=== PATIENT | male | born 1980 | race Caucasian/White ===

== ENCOUNTER 2019-01-22 14:19 | Inpatient (IN) | payer OTHER ==
[~2019-01-22] VITALS: Ht 188 cm; Wt 108.3 kg
--- NOTE | ~2019-01-22 | PROC ---
[address] [address] PROCEDURE REPORT Name: ALANNA HOPPER Room: [address] IN .R.#: [id number] Admission: 01/22/19 Attend Phys: Delilah Cook Discharge: 01/24/19 Date of : 78 Report #: [id number] THIS REPORT FOR: //name// For GI report, please see the Provation report in Perceptive 7 content. By: 06Medical Records Staff MARV /OKSANA
[~2019-01-22 14:19] MED LIST: AUGMENTIN 875-1 EACH PO; NOHOMEMEDICATIONS; NORCO 5-325 TA1 EACH PO; SYNTHROID25 MC1 PO
[2019-01-22 14:20] VITALS: BP 157/88
[2019-01-22] MEDS ORDERED: NORVASC2.5 MG PO (14:25)
[2019-01-22] MEDS ORDERED: PROZAC10 MG PO (14:25)
[2019-01-22] MEDS ORDERED: HYDROCHLOROTH12.5 M1 PO (14:25)
[2019-01-22 15:06] LABS: ABSOLUTE BASOPHILS 0.1 thou/uL (0.0-0.2); ABSOLUTE LYMPHOCYTES 1.7 thou/uL (0.8-5.3); ABSOLUTE MONOCYTES 0.7 thou/uL (0.0-1.2); ABSOLUTE NEUTROPHILS 8.6 thou/uL (1.6-8.1); BASOPHILS 0.9 %; EOSINOPHILS 0.4 %; HEMATOCRIT 42.6 % (42.0-52.0); HEMOGLOBIN 15.4 gm/dL (14.0-18.0); LYMPHOCYTES 15.5 %; MCHC 36.1 g/dL (28.0-37.0); MONOCYTES 6.1 %; MPV 7.9 fl. (7.2-11.1); NUCLEATED RBCS 0 /100WBC; PLATELET COUNT* 409 thou/uL (150-400); POLYS 77.1 %; RBC 5.13 mil/uL (4.50-6.00); RDW-CV 13.9 % (10.5-14.5); WBC 11.1 thou/uL (4.0-11.0)
[2019-01-22 15:11] LABS: CREATININE 1.4 mg/dL (0.6-1.3)
[2019-01-22 15:13] LABS: POTASSIUM 2.4 mmol/L (3.5-5.1)
[2019-01-22 15:15] LABS: ACETAMINOPHEN < 2 ug/mL (10-30); ALBUMIN 4.3 g/dL (3.4-5.0); ALCOHOL 11 mg/dL (<10); MAGNESIUM 1.2 mg/dL (1.8-2.4); SALICYLATE < 2.8 mg/dL (2.8-20.0); TOTAL BILIRUBIN 0.8 mg/dL (<0.1-1.0); TOTAL PROTEIN 7.9 g/dL (6.4-8.2)
[2019-01-22 19:00] VITALS: BP 158/101
--- NOTE | 2019-01-22 19:15 | NUR ---
PATIENT ADMITTED TO ICU ROOM 1, [facility] CURRENTLY 6, SLIGHT NAUSEA, HEADACHE AND ABDOMINAL PAIN. SEE EMAR FOR MEDS GIVEN. PATIENT PLEASENT AND COOPERATIVE. ALL QUESTIONS ANSWERED. BANANA BAG RUNNING AT THIS TIME, CURRENTLY REPLACING POTASSIUM AND MAGNESIUM. BED IN LOWEST POSITION, CALL LIGHT IN REACH, FALL PREACUTIONS IN PLACE.
[2019-01-22 20:00] VITALS: BP 143/94
[2019-01-22 21:05] VITALS: BP 144/90
[2019-01-22 22:00] VITALS: BP 138/89
[2019-01-22 23:00] VITALS: BP 141/94
[2019-01-23] VITALS (7 sets, daily range): BP systolic 125–134; BP diastolic 81–89
[2019-01-23 04:52] LABS: AMP/METHAMP Negative (Negative); BARBITURATES Negative (Negative); BENZODIAZEPINES Negative (Negative); COCAINE Negative (Negative); METHADONE Negative (Negative); OPIATES POSITIVE (Negative); PCP Negative (Negative); THC Negative (Negative)
[2019-01-23 06:02] LABS: CALCIUM 7.5 mg/dL (8.5-10.1); MAGNESIUM 2.6 mg/dL (1.8-2.4)
--- NOTE | 2019-01-23 06:54 | NUR ---
RECEIVED REPORT AND ASSUMED CARE AT 1900. VSS. MONITORING IN PLACE. PT REPORTS PAIN/ NAUSEA. PRN MEDICATION PER ORDERS. ASSESSMENT COMPLETED CHARTED. PT UP WITH ASSIST. BED LOCKED IN LOWEST POSITION, CALL LIGHT WITHIN REACH. BED ALARM ON. CIWA COMPLETED Q4/ PRN. PT HAD NOT URINATED BY 0400. BLADDER SCAN SHOWS 936ML. ENCOURAGED PT TO URINATE, 550ML OUT. POST VOID BLADDER SCAN SHOWS 290ML. PT REPORTS BURNING WHEN URINATING. HOURLY ROUNDING COMPLETED AND ALL NEEDS MET.
--- NOTE | 2019-01-23 09:28 | EKG ---
[place] [address] ELECTROCARDIOGRAM REPORT Name: ALANNA HOPPER Room: [address] ADM IN .R.#: [id number] Admission: 01/22/19 Attend Phys: Delilah Cook Discharge: Date of : 78 Report #: [id number] THIS REPORT FOR: //name// [facility] ED Test Date: 2019-01-22 Test Time: 14:33:04 Pat Name: ALANNA HOPPER Department: Room: [facility] Gender: M Travel Manager: EV : 1980 Requested By: Pam Palma Order Number: [id number] MD: Chano Velazquez Measurements Intervals [place] Rate: 100 P: 64 MN: 150 QRS: 6 QRSD: 107 T: 21 QT: 424 QTc: 547 Interpretive Statements Sinus tachycardia Probable left atrial enlargement Prolonged QT interval Baseline wander in lead(s) V3 Compared to ECG 09/28/2016 10:57:43 Prolonged QT interval now present Sinus rhythm no longer present Electronically Signed On 01-23-2019 9:28:36 CDT by Chano Velazquez [email or web address] <ELECTRONICALLY SIGNED> By: Chano Velazquez MD, FACC 01/23/19 0928 1433 1433 Chano Velazquez MD, FAC /EPI
--- NOTE | 2019-01-23 10:30 | NUR ---
SPOKE WITH PT. AT BEDSIDE. SHE SEEMED SUPPORTIVE. PT.SAID HE WORKS FULLTIME. 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 NO USE OF DME. SAID HE HAD BEEN SOBER FOR ABOUT 8 YEARS. HE SAID HAS BEEN UNDER STRESS AND OVER WHELMED LATELY. HASNT BEEN FEELING WELL. THOUGHT A LITTLE ALCOHOL MIGHT HELP HIS STOMACH FEEL BETTER. HE SAID A LITTLE TURNED INTO ALOT. HE WENT TO AA 8 YEARS AGO AND DIDN'T FEEL IT HELPED MUCH. HE QUIT ON HIS OWN. HE IS NOT INTERESTED IN AN INPT.PROGRAM. HE FEELS HE CAN DO IT ON HIS OWN. ASKED HOW SHE FELT ABOUT HIM QUITTING ON HIS OWN. SHE SAID SHE DIDN'T KNOW YET, SHE IS STILL PROCESSING . CM WILL FOLLOW. PT.TO HAVE COLONSCOPY TOMORROW FOR ABD.PAIN.
--- NOTE | 2019-01-23 16:03 | NUR ---
ASSUMED CARE OF PT AROUND 0730 THIS AM.REFER TO ASSESSMENT. PT'S CIWA SCORES AROUND 5-6 THIS SHIFT. IV ATIVAN AND MORPHINE GIVEN X1 PER PT'S REQUEST. IV TORADOL GIVEN FOR CHRONIC BACK PAIN. PT HAD C/O EPIGASTRIC PAIN THAT WAS RELIEVED BY GI COCKTAIL. GI PHYSICIAN CONSULTED WITH PLANS TO COMPLETE EGD TOMORROW AM. PT IS TO BE NPO AFTER MIDNIGHT FOR TEST. PT HAD KUB AND ABDOMINAL US THIS SHIFT. REFER TO RESULTS. BANANA BAG INFUSING WITH POTASSIUM REPLACED PER PROTOCOL THIS SHIFT. PT VOICED CONCERNS OF ALTERED MENTAL STATUS PRIOR TO DRINKING TUESDAY EVENING. PT STATES HE WENT TO [facility] TUESDAY NIGHT AND DIDN'T FEEL HE WAS RECEIVING APPROPRIATE CARE AND LEFT AMA FROM ED. PT STATES HE KNEW HIS POTASSIUM WAS CRITICALL LOW AT THAT TIME. PT REQUESTING CT HEAD BC OF PRIOR BRAIN TUMOR. DISCUSSED THAT PT SHOULD BRING CONCERNS UP WITH ROUNDING PHYSICIAN IN AM. PT HAS ORDERS TO TRANSFER TO TELE. PT TRANSFERED TO TELE UNIT ROOM 203 AT THIS TIME. REPORT GIVEN TO RECEIVING RN. ALL CONCERNS ADDRESSED. NO OTHER CONCERNS AT THIS TIME.
[2019-01-23 16:26] LABS: URINE BILIRUBIN NEGATIVE (Negative); URINE BLOOD NEGATIVE (Negative); URINE CLARITY CLEAR; URINE COLOR YELLOW; URINE GLUCOSE-RANDOM NEGATIVE (Negative); URINE KETONES NEGATIVE (Negative); URINE LEUKOCYTES-REFLEX NEGATIVE (Negative); URINE NITRITE-REFLEX NEGATIVE (Negative); URINE PROTEIN 1+ (Negative); URINE UROBILINOGEN 0.2 E.U./dl (0.2-1.0)
--- NOTE | 2019-01-23 18:21 | NUR ---
RECEIVED REPORT FROM Brandi CISSE. PT RECEIVED FROM ICU AT APPROXIMATELY 1555. PT A&O X 4 AND ABLE TO VOICE ALL NEEDS. PT DENIES ANY FURTHER NEEDS. AGREE WITH PREVIOUS NURSE ASSESSMENT. CLWR.
[2019-01-24] VITALS: BP 131/85
[2019-01-24 04:00] VITALS: BP 132/87
[2019-01-24 05:54] LABS: CALCIUM 7.7 mg/dL (8.5-10.1); CREATININE 0.9 mg/dL (0.6-1.3); POTASSIUM 3.7 mmol/L (3.5-5.1); TOTAL BILIRUBIN 0.4 mg/dL (<0.1-1.0); TOTAL PROTEIN 5.9 g/dL (6.4-8.2)
--- NOTE | 2019-01-24 07:57 | NUR ---
PT REMAINED VERY ANXIOUS THROUHGOUT SHIFT WITH MINIMAL SHIFT. WAS PLEASANT AND COOPERATIVE TOWARDS STAFF. OFFERED TO START A DIFFERENT IV SITE (PT THOUGHT HE WOULD NOT BE COMFORTABLE WITH RIGHT AC) BUT TOLERATED IT WELL THROUGHOUT THE SHIFT AND STATED HE WAS "FINE WITH THIS IV." PRIMARY CONCERNS ARE MILD NAUSEA, PAIN, AND MODERATE ANXIETY. FREQUENTLY ASKING FOR PAIN AND ANXIETY MEDS BEFORE THE Q2 PRN TIME MINIMUM. PT STATED "I USUALLY DONT SLEEP WELL WITH MY NARCOLEPSY ANYWAYS." PT NPO FOR EGD THIS AM. CALL LIGHT IN REACH. HOURLY ROUNDING FOR SAFETY.
[2019-01-24 08:00] VITALS: BP 144/105
--- NOTE | 2019-01-24 08:00 | NUR ---
ASSUMED CARE OF PT AT 0730. PT LYING IN BED. PT NPO FOR EGD TODAY-CONSENT SIGNED AND PLACED IN FRONT OF CHART. A&0X4. PT COMPLAINS OF PAIN TO BACK AND ABDOMEN-TREATED WITH PRN MORPHINE WITH PARTIAL RELIEF. TRACING SR ON THE FOOD PRODUCTION ASSOCIATE. ON RA SAT 95%. DENIES ANY SHORTNESS OF BREATH. CIWA CHARTED-SCORING 6 THIS AM. PRN ATIVAN GIVEN. REFER TO EMAR. PT UP WITH SBA-UNSTEADY AT TIMES. PT GOAL FOR TODAY IS COMPLETE EGD, PAIN MGMT, NAUSEA MGMT AND CIWA MGMT. AM ASSESSMENT CHARTED. MEDICATIONS PER JUN. PT REPOSITIONS SELF. HOURLY ROUNDING OBSERVED. BED IN LOW POSITION. BED ALARM IN PLACE. FALL PRECAUTIONS IN PLACE. CALL LIGHT WITHIN REACH. WILL CONTINUE PLAN OF CARE.
--- NOTE | 2019-01-24 10:22 | NUR ---
Clark: consult for pt with poor appetite for 3 days and losing wt. Pt out for EGD this am, has been NPO. Appears prior UBW around 250 lb. Pt had relapse of ETOH, N/V CREDIT UNDERWRITER and hypokalemia. Albumin midly low, was WNL initally. Meds reviewed. Pt with recent c/o nausea, anxiety and being stressed and overwhelmed CREDIT UNDERWRITER. BMI indicates obesity. Expect improved appetite/intake as symptoms resolve. Rec honor food preferences and encourage po intake PRN. Assess at mild nutrition risk.
[2019-01-24 10:25] VITALS: BP 144/105; BP 151/98
[2019-01-24] MEDS ORDERED: LORAZEPAM 1 MG T1 MG PO (11:54)
[2019-01-24] MEDS ORDERED: PRENATAL PO (11:54)
[2019-01-24] MEDS ORDERED: VITAMIN B-1100 M1 PO (11:54)
[2019-01-24] MEDS ORDERED: CARAFATE1 GM/10 ML PO (12:26)
[2019-01-24] MEDS ORDERED: PROTONIX40 M1 PO (12:26)
[2019-01-24 13:10] VITALS: BP 151/98
--- NOTE | 2019-01-24 15:54 | NUR ---
PT HAD EGD TODAY- REFER TO RESULTS. MEDICATION ADJUSTMENTS MADE PER GI. DISCHARGE ORDERS RECEIVED. DISCHARGE INSTRUCTIONS, CARE NOTES, SCRIPTS AND FOLLOW UP APPTS GIVEN TO PT. PT COMMUNICATES UNDERSTANDING OF DISCHARGE TEACHING. IV AND CORN COOKER REMOVED. PT DISCHARGED WITH ALL BELONGINGS AND PAPERWORK VIA WHEELCHAIR WITH [employer] TO SPOUSE OWN PERSONAL VEHICLE.
--- NOTE | 2019-01-29 13:47 | PATH ---
[address] [address] PATHOLOGY RPT PROCEDURE Name: ALANNA MO Room: [address] IN M.R.#: [id number] Admission: 01/22/19 Date of : 78 Discharge: 01/24/19 Report #: [id number] Path Case #: [id number] [facility] Accession Number: [id number] . 01 Material submitted: . PART A: stomach - BIOPSY ANTRAL EROSIONS PART B: esophagus - BIOPSY ESOPHAGUS . 01 Clinical history: . None provided . 02 Diagnosis: A. Biopsy antral erosions: - Nonspecific, moderate chronic and active antral gastritis with erosion, negative for Helicobacter pylori organisms, granulomas and dysplasia. . B. Biopsy esophagus: - Benign esophageal and gastric/columnar types mucosa with severe chronic and active inflammation and erosion, typical of erosive reflux, negative for goblet cells/diagnostic Joyce's metaplasia, granulomas, diagnostic viral inclusions and dysplasia. . (SHAGUFTA:mmjanna; 01/26/2019) QLM 01/26/2019 1036 Local . 02 Comment: Special stain (A): H. pylori immuno. . (SHAGUFTA:mml; 01/26/2019) . 02 Electronically signed: . Yifan Juares MD, Pathologist NPI- [id number] . 01 Gross description: . A. The specimen is received in formalin, labeled "Alanna Mo, biopsy antral erosions". Received is a segment of pale odell soft tissue measuring 0.5 cm in maximum dimensions. The specimen is submitted entirely in cassette A1. . B. The specimen is received in formalin, labeled "Alanna Mo, biopsy esophagus". Received are four segments of pale odell soft tissue ranging in size from 0.3 to 0.5 cm in maximum dimensions. The specimen is submitted entirely in cassette B1. (CAA; 01/25/2019) QA/QA 01/25/2019 1430 Local . 02 Pathologist provided ICD-10: [place] [address] PATHOLOGY RPT PROCEDURE Name: ALANNA MO Room: [address] IN ..#: [id number] Admission: 01/22/19 Date of : 78 Discharge: 01/24/19 Report #: [id number] Path Case #: [id number] K29.50, K25.9, K20.9 . 02 CPT . [id number], [id number], [id number] Specimen Comment: A courtesy copy of this report has been sent to Specimen Comment: [phone], , . Specimen Comment: Report sent to ,DR JUDD / DR ARITA Performed at: [address], [place], [place] [id number] MD Rigo Rutledge MD Phone: [phone] Performed at: [facility] [address], [place], [place] [address] MD Yifan Juares MD Phone: [phone]
--- NOTE | 2019-02-09 14:47 | CON ---
[address] [address] CONSULTATION Name: ALANNA HOPPER Room: [address] IN .R.#: [id number] Admission: 01/22/19 Attend Phys: Delilah Cook Discharge: 01/24/19 Date of : 78 Report #: [id number] THIS REPORT FOR: //name// CC: Catalino Britt DO Elvis Swenson DICTATED BY: Jaclyn Dawson [facility] DATE OF SERVICE: 01/23/2019 Please note, at the time of this dictation, the patient was seen and physically examined by myself. REASON FOR CONSULTATION: Nausea, vomiting and hematemesis. HISTORY OF PRESENT ILLNESS: This is a 38-year-old male who presented to the Emergency Room with alcohol withdrawals and possible seizure. The patient states that he drank a fifth of alcohol, a fifth the night before and also a fifth the morning of admission. He states that he has been sober for 7 years; however, prior to him drinking the alcohol, he was having some nausea and vomiting. He had been taking some NSAIDs on a regular basis, which he has not taken now for a couple of days and began having some epigastric pain. He does have a past medical history, he states, of having some Joyce's esophagus that he had scopes 10 years ago, but he does not recall where they were done at. Prior to admission, the patient admits to vomiting up some bright red blood that was bright red as well as dark. He has not had any more since he has been here. His major complaint is some epigastric pain as well as feeling lightheaded and dizzy and just somewhat shaky from the withdrawal from the alcohol. He also states he had a colonoscopy done years ago as well. ALLERGIES: CODEINE. MEDICATIONS: From home include levothyroxine, fluoxetine, amlodipine and hydrochlorothiazide. PAST MEDICAL HISTORY: He has had a brain tumor, history of seizures. PAST SURGICAL HISTORY: He had brain surgery in 2002. He had right foot fracture and tonsil and adenoidectomy. FAMILY HISTORY: Sister, breast cancer. SOCIAL HISTORY: Past history of cigarettes. Alcohol use just in the last day and a half, in which he had a fifth each day. [place] [address] CONSULTATION Name: ALANNA HOPPER Room: [address]#: [id number] Admission: 01/22/19 Attend Phys: Delilah Cook Discharge: 01/24/19 Date of : 78 Report #: [id number] REVIEW OF SYSTEMS: Twelve-point review of systems is essentially negative except what is mentioned in the HPI. PHYSICAL EXAMINATION: VITAL SIGNS: Temperature 96.7, pulse 91, respirations 18 and blood pressure 134/86. HEART: Regular rate and rhythm. LUNGS: Clear. ABDOMEN: Soft, positive bowel sounds in all 4 quadrants with some epigastric tenderness noted to palpation. LABORATORY DATA: Hemoglobin on admission was 15.4, white count is 11.1 and platelets 409. Lipase was normal at 135, total bilirubin 0.8, alkaline phosphatase 122, ALT 44, AST is 27. No imaging was done. IMPRESSION: 1. Hematemesis. 2. Nausea and vomiting, improved. 3. Nonsteroidal anti-inflammatory drug abuse. 4. Epigastric pain. 5. Leukocytosis. 6. History of Joyce's. 7. Alcohol abuse. 8. Alcohol withdrawal. 9. Family history of breast cancer in sister. PLAN: 1. EGD tomorrow since the patient ate breakfast this morning. 2. We will continue his Pepcid IV. 3. Further recommendations to be made after the patient has had his procedure performed. Thank you for allowing us to participate in this patient's care. Please do not hesitate to call with any questions in regard to this consult. <ELECTRONICALLY SIGNED> By: Tonny Gar MD 02/09/19 1447 1029 [id number] Gar MD /nt
== END 2019-01-24 15:55 | disposition home or self-care (01) | DRG 378 ==
LOC: M.ERS 14:19 → M.ICU 16:07 → M.2W 16:07 → M.TBA-ER 16:07 → M.ICU 17:35 → M.2W 01-23 16:07
PROVIDERS: Nurse Practitioner Family; ADMIT Internal Medicine
DX: K29.71 Gastritis, unspecified, with bleeding (principal); F10.239 Alcohol dependence with withdrawal, unspecified; K92.0 Hematemesis; F10.229 Alcohol dependence with intoxication, unspecified; E87.6 Hypokalemia; F32.9 Major depressive disorder, single episode, unspecified; I10 Essential (primary) hypertension; F41.9 Anxiety disorder, unspecified; K21.0 Gastro-esophageal reflux disease with esophagitis; K44.9 Diaphragmatic hernia without obstruction or gangrene; Z09 Encounter for follow-up examination after completed treatment for conditions other than malignant neoplasm; Z88.4 Allergy status to anesthetic agent; Z87.891 Personal history of nicotine dependence; Z80.3 Family history of malignant neoplasm of breast; Z79.1 Long term (current) use of non-steroidal anti-inflammatories (NSAID)

== ENCOUNTER → 2019-04-20 | Outpatient (CLI) | payer OTHER ==
[~2019-04-20] MED LIST changes: +ALPRAZOLAM 0.50.5 M1 PO; +CARAFATE1 GM/10 ML PO; +HYDROCHLOROTH12.5 M1 PO; +KLOR-CON 10 ER10 MEQ PO; +LORAZEPAM 1 MG T1 MG PO; +NORVASC2.5 MG PO; +PRENATAL PO; +PROTONIX40 M1 PO; +PROZAC10 MG PO; +VITAMIN B-1100 M1 PO; +ZOFRAN4 MG PO
== END ==
LOC: M.LAB 04:44
DX: E87.6 Hypokalemia (principal)

== ENCOUNTER 2019-05-14 19:39 | Emergency (ER) | payer OTHER ==
[~2019-05-14] VITALS: Ht 188 cm; Wt 113.4 kg
[~2019-05-14 19:39] MED LIST changes: -ALPRAZOLAM 0.50.5 M1 PO; -KLOR-CON 10 ER10 MEQ PO; -ZOFRAN4 MG PO
[2019-05-14 22:53] LABS: ABSOLUTE EOSINOPHILS 0.1 thou/uL (0.0-0.7); ABSOLUTE LYMPHOCYTES 2.8 thou/uL (0.8-5.3); ABSOLUTE MONOCYTES 0.7 thou/uL (0.0-1.2); ABSOLUTE NEUTROPHILS 7.9 thou/uL (1.6-8.1); BASOPHILS 0.4 %; EOSINOPHILS 0.7 %; HEMATOCRIT 45.3 % (42.0-52.0); HEMOGLOBIN 16.2 gm/dL (14.0-18.0); LYMPHOCYTES 24.3 %; MCH 29.2 pg (26.0-34.0); MCHC 35.7 g/dL (28.0-37.0); MCV 81.9 fL (80.0-100.0); MONOCYTES 6.4 %; MPV 8.1 fl. (7.2-11.1); NUCLEATED RBCS 0 /100WBC; POLYS 68.2 %; RBC 5.54 mil/uL (4.50-6.00); RDW-CV 13.9 % (10.5-14.5); WBC 11.6 thou/uL (4.0-11.0)
[2019-05-14 23:00] LABS: URINE BILIRUBIN NEGATIVE (Negative); URINE BLOOD NEGATIVE (Negative); URINE CLARITY CLEAR; URINE COLOR YELLOW; URINE GLUCOSE-RANDOM NEGATIVE (Negative); URINE KETONES NEGATIVE (Negative); URINE LEUKOCYTES-REFLEX NEGATIVE (Negative); URINE NITRITE-REFLEX NEGATIVE (Negative); URINE PROTEIN TRACE (Negative); URINE SPECIFIC GRAVITY 1.015 (1.005-1.030); URINE UROBILINOGEN 0.2 E.U./dl (0.2-1.0)
[2019-05-14 23:01] LABS: CALCIUM 8.7 mg/dL (8.5-10.1)
[2019-05-14 23:06] LABS: AMP/METHAMP Negative (Negative); BARBITURATES Negative (Negative); BENZODIAZEPINES Negative (Negative); COCAINE Negative (Negative); METHADONE Negative (Negative); OPIATES Negative (Negative); PCP Negative (Negative); THC Negative (Negative)
[2019-05-14 23:06] LABS: ALBUMIN 4.2 g/dL (3.4-5.0); TOTAL BILIRUBIN 0.7 mg/dL (<0.1-1.0); TOTAL PROTEIN 8.3 g/dL (6.4-8.2)
[2019-05-14 23:10] LABS: POTASSIUM 2.9 mmol/L (3.5-5.1)
[2019-05-14 23:21] LABS: INFLUENZA A ANTIGEN Negative (Negative); INFLUENZA B ANTIGEN Negative (Negative)
[2019-05-15] MEDS ORDERED: ZOFRAN4 MG PO (00:21)
[2019-05-15] MEDS ORDERED: KLOR-CON 10 ER10 MEQ PO ×2 (00:21→00:24)
[2019-05-15] MEDS ORDERED: ALPRAZOLAM 0.50.5 M1 PO (00:21)
[2019-05-15 00:35] VITALS: BP 148/97
[2019-05-15 00:35] LABS: PLATELET COUNT* 373 thou/uL (150-400)
== END 2019-05-15 00:35 | disposition home or self-care (01) ==
LOC: M.ERS 19:39
PROVIDERS: Nurse Practitioner Family
DX: E87.6 Hypokalemia (principal); R11.2 Nausea with vomiting, unspecified; F32.9 Major depressive disorder, single episode, unspecified; Z86.011 Personal history of benign neoplasm of the brain; Z90.89 Acquired absence of other organs; Z98.890 Other specified postprocedural states; Z88.5 Allergy status to narcotic agent; Z88.7 Allergy status to serum and vaccine; Z87.891 Personal history of nicotine dependence

== ENCOUNTER 2019-06-13 04:13 | Inpatient (IN) | payer OTHER ==
[~2019-06-13] VITALS: Ht 188 cm; Wt 113.4 kg
[~2019-06-13 04:13] MED LIST changes: +ALPRAZOLAM 0.50.5 M1 PO; +KLOR-CON 10 ER10 MEQ PO; +ZOFRAN4 MG PO
[2019-06-13 04:20] VITALS: BP 146/114
[2019-06-13] MEDS ORDERED: PROZAC20 MG PO (04:24)
[2019-06-13] MEDS ORDERED: PERCOCET 10-321 EAC1 PO (04:25)
[2019-06-13 04:53] LABS: ABSOLUTE BASOPHILS 0.1 thou/uL (0.0-0.2); ABSOLUTE LYMPHOCYTES 3.3 thou/uL (0.8-5.3); ABSOLUTE MONOCYTES 0.7 thou/uL (0.0-1.2); ABSOLUTE NEUTROPHILS 8.1 thou/uL (1.6-8.1); BASOPHILS 0.8 %; EOSINOPHILS 0.2 %; HEMATOCRIT 46.8 % (42.0-52.0); HEMOGLOBIN 16.7 gm/dL (14.0-18.0); LYMPHOCYTES 26.8 %; MCH 29.1 pg (26.0-34.0); MCHC 35.8 g/dL (28.0-37.0); MCV 81.5 fL (80.0-100.0); MONOCYTES 5.5 %; MPV 7.3 fl. (7.2-11.1); NUCLEATED RBCS 0 /100WBC; PLATELET COUNT* 437 thou/uL (150-400); POLYS 66.7 %; RBC 5.74 mil/uL (4.50-6.00); RDW-CV 13.7 % (10.5-14.5); WBC 12.2 thou/uL (4.0-11.0)
[2019-06-13 04:58] LABS: CALCIUM 8.8 mg/dL (8.5-10.1); CREATININE 1.1 mg/dL (0.6-1.3); POTASSIUM 3.4 mmol/L (3.5-5.1)
[2019-06-13 05:02] LABS: ALBUMIN 4.3 g/dL (3.4-5.0); TOTAL BILIRUBIN 0.7 mg/dL (<0.1-1.0); TOTAL PROTEIN 8.6 g/dL (6.4-8.2)
--- NOTE | 2019-06-13 10:34 | NUR ---
RECIEVED REPORT AND ASSUMED CARE OF PT.
[2019-06-13 11:00] VITALS: BP 144/82
[2019-06-13 12:05] LABS: CALCIUM 8.3 mg/dL (8.5-10.1); CREATININE 0.9 mg/dL (0.6-1.3); MAGNESIUM 1.6 mg/dL (1.8-2.4); POTASSIUM 3.3 mmol/L (3.5-5.1)
[2019-06-13 14:17] LABS: AMP/METHAMP Negative (Negative); BARBITURATES Negative (Negative); BENZODIAZEPINES Negative (Negative); COCAINE Negative (Negative); METHADONE Negative (Negative); OPIATES Negative (Negative); PCP Negative (Negative); THC Negative (Negative)
[2019-06-13 14:45] VITALS: BP 126/89; BP 145/96
--- NOTE | 2019-06-13 14:46 | NUR ---
REPORT GIVEN TO REBEKAH AADM, PT BEING TRANSFERED TO ROOM 214
[2019-06-13 14:53] VITALS: BP 126/89
[2019-06-14] VITALS: BP 125/66
[2019-06-14 05:36] LABS: MCH 29.6 pg (26.0-34.0); MCHC 36.3 g/dL (28.0-37.0); MCV 81.7 fL (80.0-100.0); MPV 7.5 fl. (7.2-11.1); RBC 4.53 mil/uL (4.50-6.00); RDW-CV 13.7 % (10.5-14.5); WBC 4.4 thou/uL (4.0-11.0)
[2019-06-14 05:37] LABS: HEMOGLOBIN 13.4 gm/dL (14.0-18.0)
[2019-06-14 05:41] LABS: ALBUMIN 3.1 g/dL (3.4-5.0); CALCIUM 7.7 mg/dL (8.5-10.1); CREATININE 0.9 mg/dL (0.6-1.3); MAGNESIUM 1.8 mg/dL (1.8-2.4); POTASSIUM 3.2 mmol/L (3.5-5.1); TOTAL BILIRUBIN 0.9 mg/dL (<0.1-1.0); TOTAL PROTEIN 6.4 g/dL (6.4-8.2)
--- NOTE | 2019-06-14 05:53 | NUR ---
PT SLEPT ON AND OFF THIS SHIFT. ASSESSMENT DOCUMENTED. MEDS GIVEN PER E-JUN. IV PATENT, FLUIDS INFUSING. PRN ATIVAN GIVEN PER E-JUN. SITTER REMAINED AT BEDSIDE. PT DENIES SI/HI AT THIS TIME. PT DOES STATE THAT HE IS HALLUCINATING THIS SHIFT, SEEING "A HEAD COME OUT OF THE MOUTH OF ANOTHER HEAD" PT STATES THAT HE HAS HAD THOUGHTS OF SI IN THE PAST. BUT NONE CURRENTLY. PT ALSO STATES THAT HE STARTED DRINKING AGAIN BECAUSE ONE OF HIS PATIENTS COMMITED SUICIDE AND THAT HIS FATHER PAST AWAY. WILL CONTINUE WITH PLAN OF CARE.
--- NOTE | 2019-06-14 07:05 | NUR ---
PTS YULIANA STATES THAT SHE WILL BE UP AROUND [id number] TO FILL OUT AFFIDAVITS.
[2019-06-14 08:00] VITALS: BP 159/96
--- NOTE | 2019-06-14 11:08 | EKG ---
[place] [address] ELECTROCARDIOGRAM REPORT Name: ALANNA HOPPER Room: [address] ADM IN M.R.#: [id number] Admission: 06/13/19 Attend Phys: Silvia Hall, Discharge: Date of : 78 Date of Service: 06/13/19 0505 Report #: [id number] THIS REPORT FOR: //name// [facility] ED Test Date: 2019-06-13 Test Time: 05:05:55 Pat Name: ALANNA HOPPER Department: Room: [facility] Gender: M Bell Clerk: : 1980 Requested By: Zunilda Smith Order Number: [id number] MD: Chano Velazquez Measurements Intervals [place] Rate: 88 P: 68 [place]: 153 QRS: 31 QRSD: 109 T: 53 QT: 388 QTc: 470 Interpretive Statements Sinus rhythm Compared to ECG 01/22/2019 14:33:04 Sinus tachycardia no longer present Prolonged QT interval no longer present Electronically Signed On 06-14-2019 11:07:43 COMMERCIAL MARKETING SPECIALIST by Chano Velazquez [email or web address] <ELECTRONICALLY SIGNED> By: Chano Velazquez MD, FACC 06/14/19 1107 0505 0505 Chano Velazquez MD, [facility] /EPI
[2019-06-14 12:00] VITALS: BP 150/109
--- NOTE | 2019-06-14 13:58 | NUR ---
Pt is A&O. Resides at home with his and kids. Normally independent. No DME. No hx of HH or SNF. [place] Affadavits on chart. When Pt is medically stable, CM to initiate looking for inpt psych. Following.
[2019-06-14 15:39] VITALS: BP 151/13
--- NOTE | 2019-06-14 19:32 | NUR ---
PATIENT RESTING IN BED. AOX4 BUT SUFFERING FROM HALLUCINATIONS, SHAKES, DISORIENTATION, AND RESTLESSNESS FRO ETOH WITHDRAWL.
[2019-06-15 00:36] VITALS: BP 146/116
[2019-06-15 04:52] VITALS: BP 166/109
[2019-06-15 05:00] LABS: HEMATOCRIT 39.9 % (42.0-52.0); HEMOGLOBIN 14.2 gm/dL (14.0-18.0); MCH 29.3 pg (26.0-34.0); MCHC 35.7 g/dL (28.0-37.0); MCV 81.9 fL (80.0-100.0); MPV 7.9 fl. (7.2-11.1); RBC 4.87 mil/uL (4.50-6.00); RDW-CV 13.6 % (10.5-14.5); WBC 5.9 thou/uL (4.0-11.0)
[2019-06-15 05:11] LABS: CALCIUM 8.6 mg/dL (8.5-10.1); CREATININE 0.8 mg/dL (0.6-1.3); POTASSIUM 3.2 mmol/L (3.5-5.1)
--- NOTE | 2019-06-15 10:00 | NUR ---
INITAL ASSESSMENT COMPLETED CHARTED. VSS. PT ANXIOUS. FAMILY HAS BEEN AT BEDSIDE WITH SITTER. PT DENIES SI AT THIS TIME. PT GETS EXTREMELY ANXIOUS WHEN SPEAKING OF HIS . REFER TO COMPUTER CHARTING FOR FURTHER DETAILS. SITTER AT BEDSIDE FOR SAFETY
[2019-06-15 13:03] VITALS: BP 138/98
[2019-06-15 16:00] VITALS: BP 134/95
[2019-06-15 20:00] VITALS: BP 139/102
[2019-06-16] VITALS: BP 133/105
[2019-06-16 03:30] VITALS: BP 122/90
--- NOTE | 2019-06-16 08:13 | NUR ---
ASSUMED PATIENT CARE AT 1900. ASSESSMENT COMPLETED CHARTED. PATIENT IS NSR ON THE MONITOR. HOURLY ROUNDING IN PLACE FOR PATIENT SAFETY. CLWR.
[2019-06-16 08:30] VITALS: BP 139/97
--- NOTE | 2019-06-16 09:00 | NUR ---
ASSUMED PT. CARE AND RECEIVED REPORT AT 0730. PT A/OX4, VSS, MONITOR ON TRACING SR PVC. PT. C/O PAIN IN BACK 12/02, CHRONIC, MILD NAUSEA AND HEADACHE. PT. EXHIBITING SOME ANXIOUS BEHAVIOR. CURRENTLY DENIES SI, REMAINS 1:1. FULL ASSESSMENT COMPLETED, REFER TO CHARTING. CALL LIGHT IN REACH, WILL CONTINUE WITH PLAN OF CARE.
[2019-06-16] MEDS ORDERED: REMERON15 M2 PO (09:29)
[2019-06-16] MEDS ORDERED: PROZAC40 MG PO (09:29)
[2019-06-16 12:49] VITALS: BP 122/87
--- NOTE | 2019-06-16 15:51 | NUR ---
ASKED TO ASSIST IN FINDING PSYCH PLACEMENT FOR PT. FAXED REFERRAL PACKETS TO TO [facility] AND [facility]. [facility] NOT HAVE ANY BEDS AVAILABLE.[facility] IS NOT ACCEPTING PACKETS AT THIS TIME. WILL EXPLORE OPTIONS OUTSIDE [facility] IF PT NOT ACCEPTED LOCALLY
[2019-06-16 16:00] VITALS: BP 110/93
[2019-06-16 20:00] VITALS: BP 152/92
[2019-06-17] VITALS: BP 145/99
[2019-06-17 04:08] VITALS: BP 134/98
[2019-06-17 07:59] VITALS: BP 134/97
--- NOTE | 2019-06-17 08:06 | NUR ---
ASSUMED PATIENT CARE AT 1900. ASSESSMENT COMPLETED CHARTED. PATIENT IS NSR ON THE MONITOR. DURING THE SHIFT THIS NURSE WAS CONTACTED BY DR. HARVEY ABOUT PSYCH PLACEMENT FOR THE PATIENT. NOTIFIED SEO INTERN PHYSICIAN AND RECEIVED ORDERS TO WAIT UNTIL MORNING SHIFT TO BEGIN DISCHARGE PAPERWORK FOR PATIENT. FAUCETS ASSEMBLER NOTIFIED. DAY SHIFT NURSE NOTIFIED. HOURLY ROUNDING IN PLACE FOR PATIENT SAFETY. CLWR.
--- NOTE | 2019-06-17 08:55 | NUR ---
PT RESTING WITH 1:1 AT BEDSIDE. PT REPORTS THAT HE IS HERE BECAUSE HE NEEDS HELP. PT EXPLAINED SITUATION AND DISCLOSED PAST TRAUMA THAT HAS BEEN UNRESOLVED. PT APPEARS ANXIOUS BUT PLEASANT AND COOPERATIVE. VSS ON RA. MONITOR SHOWS SR. REPORT CALLED FOR TRANSFER TO ACCEPTING HOSPITAL TO [facility],CHARGE NURSE. PT MADE AWARE OF EXPECTED TRANSFER AND IS VOLUNTARY. NO OTHER CONCERNS.
[2019-06-17 09:20] VITALS: BP 134/97
--- NOTE | 2019-06-17 09:34 | NUR ---
PT TRANSFERRED BY EMS VIA CART TO [facility] WITH ALL OF BELONGINGS IN STABLE CONDITION,
== END 2019-06-17 09:30 | DRG 392 ==
LOC: M.ERS 04:13 → M.TBA-ER 06:39 → M.2W 14:50
PROVIDERS: Emergency Medicine; Family Medicine; ADMIT Internal Medicine
DX: K29.20 Alcoholic gastritis without bleeding (principal); R45.851 Suicidal ideations; F10.230 Alcohol dependence with withdrawal, uncomplicated; F32.9 Major depressive disorder, single episode, unspecified; G47.419 Narcolepsy without cataplexy; E87.6 Hypokalemia; F41.9 Anxiety disorder, unspecified; I10 Essential (primary) hypertension; E78.5 Hyperlipidemia, unspecified; M54.9 Dorsalgia, unspecified; G89.29 Other chronic pain; E55.9 Vitamin D deficiency, unspecified; Z79.891 Long term (current) use of opiate analgesic; Z90.89 Acquired absence of other organs; Z88.5 Allergy status to narcotic agent; Z88.8 Allergy status to other drugs, medicaments and biological substances; Z87.891 Personal history of nicotine dependence; Z80.3 Family history of malignant neoplasm of breast; Z79.899 Other long term (current) drug therapy

== ENCOUNTER 2019-07-19 13:50 | Emergency (ER) | payer OTHER ==
[~2019-07-19] VITALS: Ht 188 cm; Wt 99.8 kg
[~2019-07-19 13:50] MED LIST changes: +PERCOCET 10-321 EAC1 PO; +PROZAC20 MG PO; +PROZAC40 MG PO; +REMERON15 M2 PO
[2019-07-19] MEDS ORDERED: METHYLPHENIDATE20 M7 PO (14:07)
[2019-07-19] MEDS ORDERED: METHYLPHENIDATE10 MG PO (14:08)
[2019-07-19 14:44] LABS: INFLUENZA A ANTIGEN Negative (Negative); INFLUENZA B ANTIGEN Negative (Negative)
[2019-07-19] MEDS ORDERED: IBUPROFEN 800800 M1 PO (15:19)
[2019-07-19] MEDS ORDERED: NORCO 5-325 TA1 EAC1 PO (15:19)
[2019-07-19] MEDS ORDERED: VENTOLIN HFA 1818 GM INH (15:19)
[2019-07-19 15:31] VITALS: BP 152/81
== END 2019-07-19 15:32 | disposition home or self-care (01) ==
LOC: M.ERS 13:50
PROVIDERS: Nurse Practitioner Family
DX: J06.9 Acute upper respiratory infection, unspecified (principal); Z87.891 Personal history of nicotine dependence; Z88.7 Allergy status to serum and vaccine; Z88.5 Allergy status to narcotic agent; Z90.89 Acquired absence of other organs

== ENCOUNTER → 2019-09-27 | Outpatient (CLI) | payer OTHER ==
[~2019-09-27] MED LIST changes: +ALL DAY ALLERGY10 M3 PO; +FLONASE 0.05%50 MCG NASAL; -HYDROCHLOROTH12.5 M1 PO; +HYDROCHLOROTHIA25 M2 PO; +IBUPROFEN 800800 M1 PO; +METHOCARBAMOL750 MG PO; +METHYLPHENIDATE10 MG PO; +METHYLPHENIDATE20 M7 PO; +NORCO 5-325 TA1 EAC1 PO; -NORVASC2.5 MG PO; +NORVASC5 MG PO; +RITALIN10 MG PO; -SYNTHROID25 MC1 PO; +SYNTHROID75 MCG PO; +VENTOLIN HFA 1818 GM INH
--- NOTE | ~2019-09-27 | PAINCON ---
[address] [address] PAIN MANAGEMENT CONSULTATION Name: ALANNA HOPPER Room: [facility]#: [id number] Admission: 09/27/19 Attend Phys: Larisa Zacarias MD Discharge: Date of : 78 Report #: [id number] THIS REPORT FOR: //name// cc: Catalino Britt James V. DO ~ THIS REPORT FOR: //name// CC: Catalino Zacarias DATE OF SERVICE: 09/27/2019 CHIEF COMPLAINT: Low back pain. HISTORY: The patient is a 39-year-old gentleman who has been referred to the pain clinic for evaluation. He has not had surgery. He has not undergone physical therapy. He did injure himself in about 1996. He states that he had a pars fracture. He still complains of some neck as well as bilateral shoulder pain. Has bilateral hip discomfort. Has noted developed some osteoarthritis. He has been told that he has some bulging disk in the lumbar area. He has come to the pain clinic with the h opes of undergoing injections. Pain has caused some sleep disruption. Notes the pain is worse when he is sitting, standing, climbing stairs, bending and lifting. He describes the pain in the lower portion of his back is continuous, constant, shooting, cramping, aching, throbbing and pounding. He rates it as a 7/7 today. Does note some pain in the right lower back and radiating down into the right posterior portion of his leg. He also has pain and discomfort up in the left and right neck area and in the right shoulder blade area. He appears to have gone to the Pain Center. He had injections at that time. The possibility of ablation procedures seemed to have been discussed with him. He has had some abdominal problems secondary to gastritis. The patient has drank in the past. He is unable to take nonsteroidal anti-inflammatory medications because of this gastritis. EGD had revealed this problem. States he is not going to AA meetings, but is following the 12-step program. ALLERGIES: CODEINE, TETANUS. CURRENT MEDICATIONS: Norvasc 5 mg, cetirizine 10 mg, Prozac 40 mg, Flonase 0.05% nasal spray, hydrochlorothiazide 25 mg, levothyroxine 0.075 mg, methocarbamol 750 mg t.i.d., methylphenidate 20 mg, Ritalin 10 mg, oxycodone 10/325 one p.o. t.i.d. and Protonix 40 mg. PAST MEDICAL HISTORY: 1. Pneumonia. 2. Cancer . 3. [place] [address] PAIN MANAGEMENT CONSULTATION Name: ALANNA HOPPER Room: [facility]#: [id number] Admission: 09/27/19 Attend Phys: Larisa Zacarias MD Discharge: Date of : 78 Report #: [id number] 4. Infectious mono. 5. Chronic bronchitis. 6. Hypothyroidism, status post surgery. 7. Allergic rhinitis. 8. History of alcohol abuse, last use. 9. Hypersomnia due to abnormal sleep disturbance. 10. 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 MRI in 2017. 11. Attention deficit disorder as a child. 12. Hypertension. 13. Primary narcolepsy without cataplexy. 14. Depression. 15. Narcolepsy. 16. Alcohol abuse. 17. Suicidal ideations. PAST SURGICAL HISTORY: Brain tumor in 2002, brain surgery, removal of tumor in 2002, seizures in 2002 related to tumor, fracture, right foot fracture, right hand, tonsillectomy in 1991, thyroid nodule with uvula removal in 2017. REVIEW OF SYSTEMS: Generally good health, fatigue, weakness, headaches, wears glasses, chronic sinus problems, swollen glands in neck, peptic ulcer stomach, kidney stones, sexual difficulty, heat intolerance, thyroid disease, glandular hormone problems, joint pain, joint stiffness, weakness of muscles, muscle cramps, back pain, difficulty walking, frequent reoccurring headaches, lightheadedness, dizziness, seizures, numbness and tingling, depression, insomnia, seasonal allergies. PAIN CLINIC ASSESSMENT/PQRS: 1. The patient complains of some arthritic changes in his low back area. He is not being treated for rheumatoid arthritis. 2. Height 6 feet 2 inches, weight 244 pounds, BMI 31. 3. Vital signs: Blood pressure 128/73, heart rate 75, respiratory rate 16, room air saturation 97%, temperature 98.0. 4. Pain intensity 4.5/10. 5. Fall history: The patient has not fallen in the last month. 6. Blood pressure. The patient is being treated for blood pressure. 7. Blood thinner. The patient is not on a blood thinning medication. 8. Opioids greater than 6 weeks. The patient receives medications from his primary. 9. Risk assessment tool high for opioid use. 10 Functional assessment tool reviewed. 11. Recreational drug use. The patient denies. 12. Alcohol: The patient admits to heavy [place] [address] PAIN MANAGEMENT CONSULTATION Name: ALANNA HOPPER Norberto Room: [facility]#: [id number] Admission: 09/27/19 Attend Phys: Larisa Zacarias MD Discharge: Date of : 78 Report #: [id number] PHYSICAL EXAMINATION: GENERAL: The patient is a well-developed, well-nourished white male. Appears his stated age. He is alert and oriented x 3. His affect is appropriate. MUSCULOSKELETAL: The patient complains of pain and discomfort in the left as well as right shoulder area. Notes pain and discomfort and trigger points in the left and right trapezius area. Has pain in the left and right rhomboid area. Has pain in the left and right paraspinous area near L4-L5 and in the paraspinous muscular area. Complains of some pain that radiates down his right leg into the calf area. States that he has had sciatica. IMPRESSION: 1. Myofascial pain. 2. Low back pain with pain radiating down into the right leg. 3. Pneumonia. 4. Cancer . 5. Hemorrhoids. 6. Infectious mono. 7. Chronic bronchitis. 8. Hypothyroidism, status post surgery. 9. Allergic rhinitis. 10. History of alcohol abuse, last use. 11. Hypersomnia due to abnormal sleep disturbance. 12. 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 MRI in 2017. 13. Attention deficit disorder as a child. 14. Hypertension. 15. Primary narcolepsy without cataplexy. 16. Depression. 17. Narcolepsy. 18. Alcohol abuse. 19. Suicidal ideations. RECOMMENDATIONS: We discussed treatment options with the patient. The patient may return to the Pain Clinic, at which time we will consider possibility of trigger point injections. He will continue with his current medications from his primary physicians. Continue with the oxycodone 10/325 one p.o. t.i.d., continue with methocarbamol 750 mg. He will call and make an arrangement for an injection in the near future. We would like to thank you for letting us to participate in his care. We hope he continues to improve. By: [id number]. Catrachito Zacarias MD /TIAGO
== END ==
LOC: M.PC 11:50
PROVIDERS: ATTEND Anesthesiology Pain Medicine
DX: M51.36 Other intervertebral disc degeneration, lumbar region (principal); M79.10 Myalgia, unspecified site; J18.9 Pneumonia, unspecified organism; K64.8 Other hemorrhoids; B27.90 Infectious mononucleosis, unspecified without complication; J42 Unspecified chronic bronchitis; E03.9 Hypothyroidism, unspecified; J30.9 Allergic rhinitis, unspecified; F51.11 Primary hypersomnia; F51.12 Insufficient sleep syndrome; M48.07 Spinal stenosis, lumbosacral region; F90.9 Attention-deficit hyperactivity disorder, unspecified type; I10 Essential (primary) hypertension; G47.419 Narcolepsy without cataplexy; F32.9 Major depressive disorder, single episode, unspecified; F10.10 Alcohol abuse, uncomplicated; R45.851 Suicidal ideations; Z86.59 Personal history of other mental and behavioral disorders; Z88.5 Allergy status to narcotic agent; Z88.8 Allergy status to other drugs, medicaments and biological substances; Z79.899 Other long term (current) drug therapy

== ENCOUNTER 2020-01-28 17:01 | Emergency (ER) | payer OTHER ==
[~2020-01-28] VITALS: Ht 188 cm; Wt 110.0 kg
[2020-01-28 17:35] LABS: HEMATOCRIT 40.1 % (42.0-52.0); HEMOGLOBIN 14.4 gm/dL (14.0-18.0); MCH 29.9 pg (26.0-34.0); MCHC 35.9 g/dL (28.0-37.0); MCV 83.1 fL (80.0-100.0); MPV 7.1 fl. (7.2-11.1); RBC 4.82 mil/uL (4.50-6.00); RDW-CV 13.5 % (10.5-14.5); WBC 2.8 thou/uL (4.0-11.0)
[2020-01-28 17:45] LABS: CREATININE 1.5 mg/dL (0.6-1.3)
[2020-01-28 17:49] LABS: ALBUMIN 3.9 g/dL (3.4-5.0); POTASSIUM 2.5 mmol/L (3.5-5.1); TOTAL BILIRUBIN 0.8 mg/dL (<0.1-1.0); TOTAL PROTEIN 7.1 g/dL (6.4-8.2)
[2020-01-28 17:56] LABS: ALCOHOL < 10 mg/dL (<10); SALICYLATE < 2.8 mg/dL (2.8-20.0)
[2020-01-28 18:01] LABS: ACETAMINOPHEN < 2 ug/mL (10-30)
[2020-01-28 18:39] LABS: URINE BILIRUBIN NEGATIVE (Negative); URINE BLOOD NEGATIVE (Negative); URINE CLARITY CLEAR; URINE COLOR YELLOW; URINE GLUCOSE-RANDOM NEGATIVE (Negative); URINE KETONES NEGATIVE (Negative); URINE LEUKOCYTES NEGATIVE (Negative); URINE NITRITE NEGATIVE (Negative); URINE PROTEIN NEGATIVE (Negative); URINE SPECIFIC GRAVITY 1.015 (1.005-1.030); URINE UROBILINOGEN 0.2 E.U./dl (0.2-1.0)
[2020-01-28 18:46] LABS: AMP/METHAMP Negative (Negative); BARBITURATES Negative (Negative); BENZODIAZEPINES Negative (Negative); COCAINE Negative (Negative); METHADONE Negative (Negative); OPIATES POSITIVE (Negative); PCP Negative (Negative); THC Negative (Negative)
[2020-01-28 19:09] VITALS: BP 115/71
--- NOTE | 2020-01-29 09:35 | EKG ---
[place] [address] ELECTROCARDIOGRAM REPORT Name: ALANNA HOPPER Room: [facility]#: [id number] Admission: 01/28/20 Attend Phys: Discharge: 01/28/20 Date of : 78 Date of Service: 01/28/201711 Report #: [id number] THIS REPORT FOR: //name// [facility] ED Test Date: 2020-01-28 Test Time: 17:12:25 Pat Name: ALANNA HOPPER Department: Room: Gender: Component Prep Operator: [facility] : 1980 Requested By: Jennifer Barajas Order Number: [id number] MD: Obey Ruby Measurements Intervals [place] Rate: 106 P: 64 [place]: 145 QRS: 21 QRSD: 108 T: 51 QT: 391 QTc: 520 Interpretive Statements Sinus tachycardia Borderline ST depression, anterolateral leads Prolonged QT interval Compared to ECG 06/13/2019 05:05:55 ST (T wave) deviation now present Prolonged QT interval now present Sinus rhythm no longer present Electronically Signed On 01-29-2020 9:35:16 CDT by Obey Ruby [email or web address] <ELECTRONICALLY SIGNED> By: Obey Ruby MD, FAC 01/29/20 0935 11 171 Obey Ruby MD, FAC /EPI
== END 2020-01-28 19:09 | disposition home or self-care (01) ==
LOC: M.ERS 17:01
PROVIDERS: Personal Emergency Response Attendant
DX: R11.2 Nausea with vomiting, unspecified (principal); T40.425A Adverse effect of tramadol, initial encounter; Z79.899 Other long term (current) drug therapy; Z88.6 Allergy status to analgesic agent; Z87.891 Personal history of nicotine dependence; Z88.7 Allergy status to serum and vaccine; Y92.89 Other specified places as the place of occurrence of the external cause